=== PATIENT | female | born 2005 | race Two or more races ===

== ENCOUNTER 2024-06-11 18:57 | Emergency (ER) | payer MEDICAID, SELFPAY ==
[2024-06-11 19:46] VITALS: BP 122/87; PULSE 129; RESP 19; TEMP 38.3; O2SAT 98
--- NOTE | 2024-06-11 19:54 | PD.EDURI ---
Upper Respiratory Inf. RME/HPI General Chief Complaint: Flu Like Symptoms Stated Complaint: nausea, cough, fever sore throat, chest hurts Time Seen by Provider: 06/11/24 19:52 Arrival date/time: 06/11/24 18:57 18F with no significant PMH presents to ED with several days of cough, sore throat, fevers/chills, and some chest/lung pain. Patient tested negative at clinic for strep. Limitations: no limitations Related Data Home Medications ?Medication ?Instructions ?Recorded ?Confirmed amoxicillin 250 mg/5 mL oral ##0 04/27/14 suspension Previous Rx's ?Medication ?Instructions ?Recorded loratadine 10 mg tablet (Claritin) 10 mg PO QDAY #30 tabs 01/16/23 amoxicillin 500 mg tablet 1,000 mg (2 x 500 mg) PO TID 5 06/11/24 days #30 tabs Allergies Allergy/AdvReac Type Severity Reaction Status Date / Time No Known Allergies Allergy Verified 06/11/24 18:58 Review of Systems Review of Systems Systems Reviewed: All systems reviewed, normal except as documented Constitutional Constitutional: Reports system reviewed and no additional complaints, except as documented, Denies fever(s) and Denies headache(s) ENT Ears, Nose, Mouth, and Throat: Reports as per HPI, Denies disequilibrium, Denies headache(s) and Reports sore throat Cardiovascular Cardiovascular: Reports system reviewed and no additional complaints, except as documented, Reports as per HPI, Reports chest pain (lung) and Denies dyspnea Respiratory Respiratory: Reports system reviewed and no additional complaints, except as documented, Reports as per HPI, Reports cough and Denies dyspnea Gastrointestinal Gastrointestinal: Reports system reviewed and no additional complaints, except as documented, Denies abdominal pain, Denies nausea and Denies vomiting Neurologic Neurologic: Reports system reviewed and no additional complaints, except as documented, Denies confusion, Denies disequilibrium and Denies headache(s) Psychiatric Psychiatric: Denies confusion Past Medical History Social History SMOKING STATUS: Never smoker ED Exam General Limitations: Present no limitations General appearance: Present alert and in no apparent distress Head Head exam: Present atraumatic Eye Eye exam: Present normal appearance, PERRL and EOMI ENT ENT exam: Present normal exam, normal oropharynx and mucous membranes moist Neck Neck exam: Present normal inspection, full ROM and trachea midline Chest Chest inspection: Present normal inspection and symmetric chest wall rise Respiratory Respiratory exam: Present normal lung sounds bilaterally Cardiovascular Cardiovascular exam: Present regular rate, normal rhythm and normal heart sounds Abdominal Exam Abdominal exam: Present soft and normal bowel sounds Extremities Exam Extremities exam: Present normal inspection and full ROM Back Exam Back exam: Present normal inspection and full ROM Neurological Exam Neurological exam: Present alert, oriented X3 and CN II-XII intact Psychiatric Psychiatric exam: Present normal affect and normal mood Skin Skin exam: Present warm, dry, intact and normal color Course Quality Measures none Orders Category Date Time Status Bedside Influenza A&B Antigen Test NOW Care 06/11/24 19:01 Completed XR chest 2V Stat Exams 06/11/24 20:21 Completed Acetaminophen Tab [Tylenol Tab] Med 06/11/24 21:20 Discontinued 650 mg PO X1 ONE Naproxen [Naprosyn] Med 06/11/24 19:52 Discontinued 500 mg PO X1 ONE cefTRIAXone [Rocephin] 1,000 mg Med 06/11/24 21:21 Discontinued Lidocaine 1% 20 ml [Xylocaine 1% 20 ML] 2.1 ml IM X1 Vital Signs Vital signs: Vital Signs Temperature 100.9 F H 06/11/24 19:46 Pulse Rate 129 H 06/11/24 19:46 Respiratory Rate 19 06/11/24 19:46 Blood Pressure 122/87 H 06/11/24 19:46 Pulse Oximetry (%) 98 06/11/24 19:46 Oxygen Delivery Method Room Air 06/11/24 19:46 O2 at 98% on RA and WNLs Upper Respiratory Infection MDM Narrative MDM Narrative:: 18F with no significant PMH presents to ED with several days of cough, sore throat, fevers/chills, and some chest/lung pain. Patient tested negative at clinic for strep. Physical exam reveals red oropharynx, but otherwise clear ENT and lungs. Patient is mildly febrile, but does not appear toxic. Swabs neg. CXR shows PNA. Patient data External records reviewed:: [facility] previous records Clinical information provided by:: patient Social determinants that could affect healthcare access:: none Patient has the following chronic illnesses:: none How is presenting disease/condition affected by chronic disease/condition?: no chronic disease Evaluation data The following diagnostics were reviewed and interpreted by me:: lab results Lab and/or radiology exams considered but not ordered:: ordered Interpretation Summary: above Medications / Prescriptions Medications or Prescriptions considered but not ordered:: ordered Medication administrations:: Medication Administration History Discontinued Medications Acetaminophen (Acetaminophen 325 Mg Tablet) 650 mg PO X1 ONE Stop: 06/11/24 21:21 Last Admin: 06/11/24 21:26 Dose: 650 mg Documented By: Ceftriaxone Sodium 1,000 mg/ (Lidocaine HCl 2.1 ml) 0 mg IM X1 ONE Stop: 06/11/24 21:22 Last Admin: 06/11/24 21:27 Dose: 1,000 mg Documented By: Naproxen (Naproxen 250 Mg Tablet) 500 mg PO X1 ONE Stop: 06/11/24 19:53 Last Admin: 06/11/24 20:02 Dose: 500 mg Documented By: EE above Consultations Consultation(s) initiated? (list below): No Diagnosis Upper Respiratory Differential Diagnosis: upper respiratory infection, croup, otitis media, sinusitis, viral infection, bronchitis, influenza, pharyngitis and other (CAP) Most likely diagnosis given after review of the tests above:: CAP Admission Indicated Admission indicated?: not indicated Admission Request Was there a request for admission?: No Disposition Plan Disposition Plan: Discharge Discharge Attestation Discharge Attestation: The patient and all family members were given an opportunity to ask questions and understood the discharge instructions. Discharge instructions specifically effects, indications for sooner follow up or return to the emergency department, and the expected course of current diagnosis. Patient condition: Stable Discharge Plan Plan Patient Disposition: HOME (Self Care) Disposition Comment: Stable Prescriptions/Referrals Prescriptions/Med Rec: New amoxicillin 500 mg tablet 1,000 mg PO TID 5 Days Qty: 30 0RF No Action amoxicillin 250 MG/5 ML suspension Qty: 0 loratadine [Claritin] 10 mg tablet 10 mg PO QDAY Qty: 30 0RF Referrals: Samuel Chang MD [Primary Care Provider] - In 1 week Problem List Clinical Impression: CAP (community acquired pneumonia) Patient/Caregiver Discharge Instructions Education Materials: ED Pneumonia (Adult) Additional Instructions: Please follow-up with PCP within 24-48 hours and return immediately if symptoms worsen. Print Language: Israeli Stand Alone Forms: Work/School Release, Patient Portal Info Letter FUENTES/ROSI Supervising Physician FUENTES/ROSI Supervising Physician: Dr. Dooley
[2024-06-11] MEDS: NAPROXEN 250 MG TABLET 500 MG PO (20:02)
--- NOTE | 2024-06-11 20:21 | XR_ITS ---
Examination: PA lateral chest 2 views TECHNIQUE: Upright PA and lateral chest 2 views Exam date time: June 11, 20242027 hours INDICATION: Coughing fever chest pain beginning last week. FINDINGS: Early left perihilar left upper lobe pneumonia Normal heart size Right lung clear IMPRESSION: Early left perihilar left upper lobe pneumonia
[2024-06-11 21:15] VITALS: BP 105/74; PULSE 118; RESP 18; TEMP 38.9; O2SAT 98
[2024-06-11 21:25] VITALS: BMI 23.8
[2024-06-11 21:26] VITALS: TEMP 38.9
[2024-06-11] MEDS: ACETAMINOPHEN 325 MG TABLET 650 MG PO (21:26)
[2024-06-11] MEDS: cefTRIAXone 1,000 MG, LIDOCAINE 1% 20 ML 2.1 ML IM (21:27)
[2024-06-11 22:13] VITALS: PULSE 102; RESP 17; TEMP 37.3; O2SAT 99
== END 2024-06-11 22:24 | disposition home or self-care (01) ==
PROVIDERS: Emergency Provider Emergency Medicine; PCP Family Medicine
DX: J18.9 Pneumonia, unspecified organism (principal)
CPT/HCPCS: 71046; 87400; 96372; 99283; J0696; J3490; A9270